=== PATIENT | male | born 1970 | race Caucasian/White ===

== ENCOUNTER 2018-11-18 09:24 | Day surgery (SDC) | payer OTHER ==
[~2018-11-18] VITALS: Ht 149.9 cm; Wt 58.0 kg
[~2018-11-18 09:24] MED LIST: ACET325 PO; ALBU90OI INH; GABA100 PO; NAPR500 PO; Norvasc5 MG PO; ROSU10TA PO
--- NOTE | 2018-11-18 10:17 | NUR ---
History, Chart, Medications and Allergies reviewed before start of procedure. Patient confirms NPO status and agrees with scheduled surgery. Patient reports completing Chlorhexadine shower X2 prior to admission to hospital. Surgical site prepped with 2% Chlorhexidine cloth wipe.
--- NOTE | 2018-11-18 11:29 | NUR ---
UP TO VOID.
--- NOTE | 2018-11-18 11:29 | NUR ---
PATIENT GAVE GLASSES TO .
--- NOTE | 2018-11-18 12:29 | NUR ---
11/18/18 1229 Angela Bansal PT VOIDED PRIOR TO COMING TO THE OR
--- NOTE | 2018-11-18 16:15 | NUR ---
UNABLE TO KEEP PT SATS UP AFTER AGGRESSIVE USE OF IS, AMBULATION, ALBUTEROL UDN TX, AND ENCOURAGED DBC. PT ALSO ONLY ABLE TO URINATE A FEW DROPS WHEN UP TO THE BATHROOM. BLADDER SCAN SHOWED 392ML PRIOR TO ATTEMPT TO URINAE. PT RECEIVED PAIN PILLS AT 1505. ICE THERAPY TO ABDOMEN. AFTER TRYING ALL ATTEMPTS TO GET PATIENT READY TO GO HOME CALLED DR CARPENTER AND RECEIVED ORDERS TO KEEP PATIENT ON EXTENDED RECOVERY STAY. CALL OUT TO NURSING PACKAGER AND STRAPPER FOR A ROOM. INCISIONS REMAINED INTACT T/O RECOVERY.
--- NOTE | 2018-11-18 16:56 | NUR ---
TRANSFER OF CARE TO KAILASH SUTTON RN. PATIENT ABLE TO VOID, RESIDUAL VOLUME WAS 309 ML, PATIENT ASKED TO WAIT TO BE STRAIGHT CATHED DUE TO IMPROVEMENT IN STREAM THIS VOID. REPORTED TO KAILASH.
--- NOTE | 2018-11-18 17:05 | NUR ---
PT ARRIVED TO ROOM AT APPROXIMATELY 1445. PT IS ORIENTED BUT DROWSY. REPORTS PAIN AT 5/10 AND STATES PAIN IS TOLERABLE. VSS. WILL CONTINUE TO MONITOR.
--- NOTE | 2018-11-18 19:59 | NUR ---
STRAIGHT CATH PT ATTEMPTED TO VOID AND WAS UNABLE. BLADDER SCAN AT 1905 SHOWED 428ML IN THE BLADDER. STRAIGHT CATH DONE; 600ML OUTPUT. NOC RN NOTIFIED.
--- NOTE | 2018-11-19 07:43 | NUR ---
SHIFT SUMMARY PT A&O X4 T/O SHIFT. ABD SOFT; BTX4; TOELRATING DIET WELL. PT DENIES NAUSEA. ABD SITES CDI. PAIN MANGED PER EMAR. PT VOIDING WELL. CONT. OXIMETRY IN PLACE; SATS OVER 90% ON RA T/O SHIFT. AT BEDSIDE T/O SHIFT. CALL LIGHT IN REACH; PT DEMONSTRATES USE. REPORT GIVEN TO DAY SHIFT RN.
[2018-11-19] MEDS ORDERED: HYDR1TAB94 PO (12:47)
--- NOTE | 2018-11-19 14:54 | NUR ---
DISCHARGE: PT DC TO HOME AT THIS TIME WITH SPOUSE. SCRIPTS GIVEN YEATERDAY AND FILLED. PT HAS BEEN TOLERATING DIET, NO NAUSEA. VOIDING WELL. PAIN CONTROLLED WITH PRN MEDS. PT HAS NOT PASSED FLATUS, BUT OC DOCTOR STATES OK TO DC. PT HAS BEEN AMBULATING HALLWAYS FREQUENTLY. VERBAL UNDERSTANDING OF INSTRUCTIONS, FOLLOW UP, MEDICATIONS AND PROBLEMS TO REPORT. IVS DC'D WNL. LEFT VIA WHEELCHAIR TO CAR WITH THIS RN.
== END 2018-11-19 13:15 | disposition home or self-care (01) ==
LOC: ORSCMMR 09:24 → ORD 12:00 → ORSCMMR 12:30 → ORD 12:30 → SURS 16:45 → ORSCMMR 11-19 13:15
PROVIDERS: Surgery
PROC: 8E0W4CZ Robotic Assisted Procedure of Trunk Region, Percutaneous Endoscopic Approach (ICD-10-PCS; principal; 2018-11-18 12:30)
PROC: 0YU64JZ Supplement Left Inguinal Region with Synthetic Substitute, Percutaneous Endoscopic Approach (ICD-10-PCS; principal; 2018-11-18 12:30)
DX: K40.90 Unilateral inguinal hernia, without obstruction or gangrene, not specified as recurrent (principal); E11.9 Type 2 diabetes mellitus without complications; I10 Essential (primary) hypertension; J45.909 Unspecified asthma, uncomplicated; G47.33 Obstructive sleep apnea (adult) (pediatric); Z79.899 Other long term (current) drug therapy
CPT/HCPCS: 49650; S2900; 82947; A9270-GY; C1781; J0330; J0690; J1100; J2250; J2370; J2405; J2710; J2765; J3010; J7120

== ENCOUNTER 2023-04-13 13:14 | Day surgery (SDC) | payer OTHER ==
[~2023-04-13] VITALS: Ht 147.3 cm; Wt 54.8 kg
[~2023-04-13 13:14] MED LIST changes: +HYDR1TAB94 PO; +Prinivil10 MG
[2023-04-13 14:57] VITALS: BP 112/53
--- NOTE | 2023-04-13 15:18 | NUR ---
04/13/23 1518 Jasen Nelson IV REMOVED INTACT. SITE WNL.
== END 2023-04-13 15:05 | disposition home or self-care (01) ==
LOC: ORSCSDS 13:14
PROVIDERS: Ophthalmology
PROC: 08RK3JZ Replacement of Left Lens with Synthetic Substitute, Percutaneous Approach (ICD-10-PCS; principal; 2023-04-13 14:30)
DX: E11.36 Type 2 diabetes mellitus with diabetic cataract (principal); H25.12 Age-related nuclear cataract, left eye; Z96.1 Presence of intraocular lens; H40.9 Unspecified glaucoma; G47.33 Obstructive sleep apnea (adult) (pediatric); I10 Essential (primary) hypertension; J45.909 Unspecified asthma, uncomplicated; H35.30 Unspecified macular degeneration; K21.9 Gastro-esophageal reflux disease without esophagitis; Z79.899 Other long term (current) drug therapy
CPT/HCPCS: 82947; J2250; J3010; J3301; J7040; V2632

== ENCOUNTER → 2024-03-13 | Outpatient (CLI) | payer OTHER ==
[2024-03-13 16:59] LABS: BASOPHILS ABSOLUTE AUTO 0.03 K/mm3 (0.00-0.23); BASOPHILS PERCENT AUTO 0 % (0-2); EOSINOPHILS ABSOLUTE AUTO 0.17 K/mm3 (0.00-0.68); EOSINOPHILS PERCENT AUTO 2 % (0-6); Hemoglobin 14.3 g/dL (13.5-17.5); IMMATURE GRAN ABSOLUTE AUTO 0.02 K/mm3 (0.00-0.10); IMMATURE GRAN PERCENT AUTO 0 % (0-1); LYMPHOCYTES ABSOLUTE AUTO 1.74 K/mm3 (0.84-5.20); LYMPHOCYTES PERCENT AUTO 21 % (21-46); MONOCYTES ABSOLUTE AUTO 0.66 K/mm3 (0.16-1.47); MONOCYTES PERCENT AUTO 8 % (4-13); Mean Corpuscular HGB 31.2 pg (26.0-34.0); Mean Corpuscular HGB Conc 34.9 g/dL (31.5-36.5); Mean Corpuscular Volume 90 fL (80-100); Mean Platelet Volume 11.3 fL (9.1-12.4); NEUTROPHILS ABSOLUTE AUTO 5.63 K/mm3 (1.96-9.15); NEUTROPHILS PERCENT AUTO 68 % (41-73); Platelet Count 222 K/mm3 (150-400); RDW Coefficient Variation 11.8 % (11.7-14.2); RDW Standard Deviation 38.5 fL (35.1-46.3); Red Blood Cell Count 4.58 M/mm3 (4.30-5.90); White Blood Cell Count 8.25 K/mm3 (4.00-11.30)
[2024-03-13 17:13] LABS: Alanine Aminotransfer (ALT/SGP 35 U/L (12-78); Albumin/Globulin Ratio 1.1 (0.8-1.8); Alk Phos 77 U/L (50-136); Anion Gap 8 mmol/L (3-11); Aspartate Aminotrans (AST/SGOT 33 U/L (12-37); Bilirubin, Total 0.4 mg/dL (0.1-1.0); Blood Urea Nitrogen 17 mg/dL (8-24); Bun/Creatinine Ratio 14.4 (12.0-20.0); CHOL/HDL RATIO 2.3; CO2, Blood 29 mmol/L (21-32); Calcium, Blood 9.3 mg/dL (8.5-10.1); Chloride, Blood 104 mmol/L (98-108); Cholesterol 144 mg/dL (50-200); Creatinine, Blood 1.18 mg/dL (0.60-1.20); Globulin, Blood 3.7 g/dL (2.2-4.0); Glomerular Filtration Rate 73 (60-); Glucose, Blood 106 mg/dL (70-99); HDL Cholesterol 62 mg/dL (>39); LDL/HDL RATIO 0.8; Low Density Lipoprotein Chol 50 mg/dL (0-110); Potassium, Blood 3.7 mmol/L (3.5-5.5); Sodium, Blood 137 mmol/L (136-145); Total Protein, Blood 7.7 g/dL (6.4-8.2); Triglycerides 159 mg/dL (30-160); Uric Acid, Blood 7.5 mg/dL (3.5-7.2); Very Low Density Lipoprot Chol 31 mg/dL (6-32)
== END ==
LOC: LAB SHORT 16:11 → LAB 16:11
PROVIDERS: Family Medicine
DX: E11.9 Type 2 diabetes mellitus without complications (principal); I10 Essential (primary) hypertension; R53.83 Other fatigue; M10.9 Gout, unspecified; N42.9 Disorder of prostate, unspecified
CPT/HCPCS: 80053; 80061; 83036; 84153; 84443; 84550; 85025

== ENCOUNTER → 2025-03-12 | Outpatient (CLI) | payer OTHER ==
[2025-03-12 17:48] LABS: BASOPHILS ABSOLUTE AUTO 0.02 K/mm3 (0.00-0.23); BASOPHILS PERCENT AUTO 0 % (0-2); EOSINOPHILS ABSOLUTE AUTO 0.07 K/mm3 (0.00-0.68); EOSINOPHILS PERCENT AUTO 1 % (0-6); Hematocrit 40.9 % (37.0-53.0); Hemoglobin 14.0 g/dL (13.5-17.5); IMMATURE GRAN ABSOLUTE AUTO 0.04 K/mm3 (0.00-0.10); IMMATURE GRAN PERCENT AUTO 1 % (0-1); LYMPHOCYTES ABSOLUTE AUTO 1.20 K/mm3 (0.84-5.20); LYMPHOCYTES PERCENT AUTO 15 % (21-46); MONOCYTES ABSOLUTE AUTO 0.68 K/mm3 (0.16-1.47); MONOCYTES PERCENT AUTO 8 % (4-13); Mean Corpuscular HGB Conc 34.2 g/dL (31.5-36.5); Mean Corpuscular Volume 91 fL (80-100); NEUTROPHILS ABSOLUTE AUTO 6.16 K/mm3 (1.96-9.15); NEUTROPHILS PERCENT AUTO 75 % (41-73); NRBC ABSOLUTE 0.00 K/mm3 (0.00-0.02); NRBC Auto 0.0 /100 WBC (0.0-0.2); Platelet Count 221 K/mm3 (150-400); RDW Coefficient Variation 11.9 % (11.7-14.2); RDW Standard Deviation 39.8 fL (35.1-46.3)
[2025-03-12 19:40] LABS: Alanine Aminotransfer (ALT/SGP 42 U/L (12-78); Albumin, Blood 3.9 g/dL (3.4-5.0); Albumin/Globulin Ratio 1.1 (0.8-1.8); Anion Gap 8 mmol/L (3-11); Aspartate Aminotrans (AST/SGOT 32 U/L (12-37); Bilirubin, Total 0.3 mg/dL (0.1-1.0); Blood Urea Nitrogen 20 mg/dL (8-24); CHOL/HDL RATIO 2.6; CO2, Blood 28 mmol/L (21-32); Calcium, Blood 9.4 mg/dL (8.5-10.1); Chloride, Blood 104 mmol/L (98-108); Cholesterol 172 mg/dL (50-200); Creatinine, Blood 1.17 mg/dL (0.60-1.20); Globulin, Blood 3.7 g/dL (2.2-4.0); Glucose, Blood 119 mg/dL (70-99); HDL Cholesterol 66 mg/dL (>39); LDL/HDL RATIO 1.1; Low Density Lipoprotein Chol 70 mg/dL (0-110); Potassium, Blood 3.9 mmol/L (3.5-5.5); Prostate Specific Antigen 2.370 ng/mL (0.000-4.000); Sodium, Blood 136 mmol/L (136-145); Total Protein, Blood 7.6 g/dL (6.4-8.2); Triglycerides 178 mg/dL (30-160); Uric Acid, Blood 6.9 mg/dL (3.5-7.2); Very Low Density Lipoprot Chol 35 mg/dL (6-32)
[2025-03-12 19:44] LABS: Thyroid Stimulating Hormone 1.830 uIU/mL (0.360-4.800)
== END ==
LOC: LAB 16:57 → LAB SHORT 16:57
PROVIDERS: Family Medicine
DX: Z00.01 Encounter for general adult medical examination with abnormal findings (principal); E11.9 Type 2 diabetes mellitus without complications; I10 Essential (primary) hypertension; M10.9 Gout, unspecified; N42.9 Disorder of prostate, unspecified; R53.83 Other fatigue
CPT/HCPCS: 80053; 80061; 83036; 84153; 84443; 84550; 85025